=== PATIENT | male | born 2000 | race Two or more races ===

== ENCOUNTER 2024-11-12 23:56 | Emergency (ER) | payer MEDICAID, SELFPAY ==
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
[2024-11-13 00:17] VITALS: BMI 29.7
[2024-11-13 00:26] VITALS: BP 108/75; PULSE 66; RESP 20; TEMP 36.7; O2SAT 98
[2024-11-13] MEDS: DIPHTH,PERTUSS(ACELL),TET VAC 0.5 ML SYR- ADULT IMi (01:10)
[2024-11-13] MEDS: AMOXICILLIN/POT CLAV 875 TABLET 1 TAB PO (01:10)
[2024-11-13] MEDS: LIDOCAINE 1% W/EPI 1:100K 20 ML VIAL INFL ×2 (01:11→01:12)
[2024-11-13] MEDS: BACITRACIN OINT 1 GM PACKET TOP (01:13)
[2024-11-13 01:50] VITALS: BP 128/81; PULSE 81; RESP 18; TEMP 37.2; O2SAT 97
== END 2024-11-13 01:50 | disposition home or self-care (01) ==
PROVIDERS: Emergency Provider Emergency Medicine; PCP Family Medicine
DX: S51.811A Laceration without foreign body of right forearm, initial encounter (principal); S50.812A Abrasion of left forearm, initial encounter; S00.81XA Abrasion of other part of head, initial encounter; S61.512A Laceration without foreign body of left wrist, initial encounter; Z23 Encounter for immunization; S51.812A Laceration without foreign body of left forearm, initial encounter
CPT/HCPCS: 12002; 90471; 90715; 99283; J3490; A9270